=== PATIENT | male | born 1960 | race Hispanic/Latino ===

== ENCOUNTER 2021-02-04 19:27 | Inpatient (IN) | payer BC, OTHER ==
[~2021-02-04 19:27] MED LIST: Iopamidol-370 76% 500 ML 1 ML ONE
[2021-02-04] MEDS ORDERED: Fentanyl 100 MCG/2 ML VIAL ONE (19:37)
[2021-02-04] MEDS ORDERED: Boostrix 0.5 ML (Tdap) VIAL ONE (19:37)
[2021-02-04 19:50] LABS: #Basophils 0.1 thou/uL (0.0-0.2); #Eosinphils 0.1 thou/uL (0.0-0.7); #Lymphocytes 3.1 thou/uL (1.20-3.40); #Monocytes 0.5 thou/uL (0.11-0.59); #Neutrophils 3.2 thou/uL (1.40-6.50); %Basophils 1.1 % (0.0-1.0); %Eosinophils 1.8 % (0.0-10.0); %Monocytes 6.5 % (0.0-10.0); %Neutrophils 45.6 % (42.0-75.0); Hemoglobin 13.1 g/dL (14.0-18.0); Mean Corpuscular HGB CONC 33.8 g/dL (32.0-36.0); Mean Corpuscular Hemoglobin 33.8 pg (27.0-31.0); Platelet Count 120 thou/uL (130-400); RBC Distribution Width 12.1 % (11.5-14.5); Red Blood Cell (RBC) Count 3.87 mill/uL (4.70-6.10); White Blood Cell (WBC) Count 6.9 thou/uL (4.8-10.8)
[2021-02-04 19:56] LABS: INR-International Normal Ratio 1.1; PTT 26.4 sec (22.9-36.1); Prothrombin Time 14.8 sec (12.0-14.7)
[2021-02-04 20:13] LABS: ALT (SGPT) 56 U/L (8-55); AST (SGOT) 75 U/L (5-34); Alkaline Phosphatase 53 U/L (40-110); Anion Gap 17 mmol/L (10-20); BUN (Urea Nitrogen) 28 mg/dL (8.4-25.7); Bilirubin, Total 0.5 mg/dL (0.2-1.2); Calc. Creatinine Clearance 0 mL/min (70-130); Calcium 8.3 mg/dL (7.8-10.44); Carbon Dioxide 18 mmol/L (22-29); Chloride 107 mmol/L (98-107); Globulin 2.5 g/dL (2.4-3.5); Glucose 173 mg/dL (70-105); Lipase 72 U/L (8-78); Potassium 4.4 mmol/L (3.5-5.1); Protein, Total 6.5 g/dL (6.0-8.3); Sodium 138 mmol/L (136-145)
[2021-02-04] MEDS ORDERED: Morphine 4 MG/ML VIAL ONE (20:30)
[2021-02-04] MEDS ORDERED: Lidocaine 1% w/Epinephrine 1:100K 20 ML VIAL ONE (20:58)
[2021-02-04] MEDS ORDERED: Dextrose 50% Abboject 50 ML SYRINGE SLOW IVP PRN (21:09)
[2021-02-04] MEDS ORDERED: Ondansetron PF 4 MG/2 ML Vial IVP PRN (21:09)
[2021-02-04] MEDS ORDERED: Dextrose 5% in Water 1,000 ML IV PRN (21:09)
[2021-02-04] MEDS ORDERED: HumaLOG 300 UNITS/3 ML VIAL SC PRN (21:09)
[2021-02-04] MEDS ORDERED: traMADol HCl 50 MG TAB PO PRN (21:13)
[2021-02-04] MEDS ORDERED: Morphine 2 MG/ML VIAL SLOW IVP PRN (21:19)
[2021-02-04] MEDS ORDERED: Bacitracin 1 PK ONE (21:46)
[2021-02-04 22:35] LABS: #Lymphocytes 0.9 thou/uL (1.20-3.40); #Monocytes 0.6 thou/uL (0.11-0.59); %Basophils 0.4 % (0.0-1.0); %Eosinophils 0.3 % (0.0-10.0); %Lymphocytes 11.9 % (21.0-51.0); %Monocytes 7.7 % (0.0-10.0); %Neutrophils 79.7 % (42.0-75.0); Hemoglobin 10.8 g/dL (14.0-18.0); Mean Corpuscular HGB CONC 32.2 g/dL (32.0-36.0); Mean Corpuscular Hemoglobin 32.5 pg (27.0-31.0); RBC Distribution Width 11.9 % (11.5-14.5); Red Blood Cell (RBC) Count 3.33 mill/uL (4.70-6.10); White Blood Cell (WBC) Count 7.5 thou/uL (4.8-10.8)
[2021-02-04] MEDS ORDERED: Calcium Gluc 4.6 MEQ/10 ML (100 MG/ML) ONE (22:44)
[2021-02-04 22:52] LABS: Mean Platelet Volume 9.8 fL (7.4-10.4); Platelet Count 95 thou/uL (130-400)
[2021-02-04 22:53] LABS: Platelet Morphology Comment Appears Decreased
[2021-02-05] MEDS: Acetaminophen 325 MG TAB PO SCH ×4 (01:50→17:42)
[2021-02-05] MEDS: Lactated Ringer's 1,000 ML IV SCH ×2 (01:51→10:17)
[2021-02-05] MEDS: traMADol HCl 50 MG TAB PO SCH ×2 (01:52→06:35)
[2021-02-05 02:29] VITALS: BMI 36.9
[2021-02-05] MEDS: Ibuprofen 200 MG TAB PO SCH ×2 (03:56→06:36)
[2021-02-05 04:45] LABS: SARS-CoV-2 PCR by NAA Not Detected (NotDetected)
[2021-02-05 05:38] LABS: #Lymphocytes 1.1 thou/uL (1.20-3.40); #Monocytes 0.6 thou/uL (0.11-0.59); #Neutrophils 4.3 thou/uL (1.40-6.50); %Basophils 0.2 % (0.0-1.0); %Eosinophils 0.2 % (0.0-10.0); %Lymphocytes 17.6 % (21.0-51.0); %Monocytes 10.3 % (0.0-10.0); %Neutrophils 71.8 % (42.0-75.0); Mean Corpuscular HGB CONC 33.1 g/dL (32.0-36.0); Mean Corpuscular Hemoglobin 32.8 pg (27.0-31.0); Mean Corpuscular Volume 99.2 fL (78.0-98.0); Mean Platelet Volume 9.8 fL (7.4-10.4); Platelet Count 84 thou/uL (130-400); RBC Distribution Width 12.2 % (11.5-14.5); Red Blood Cell (RBC) Count 3.35 mill/uL (4.70-6.10)
[2021-02-05 05:57] LABS: Anion Gap 14 mmol/L (10-20); BUN (Urea Nitrogen) 22 mg/dL (8.4-25.7); Calc. Creatinine Clearance 224 mL/min (70-130); Calcium 7.7 mg/dL (7.8-10.44); Carbon Dioxide 18 mmol/L (22-29); Chloride 108 mmol/L (98-107); Glucose 161 mg/dL (70-105); Magnesium 1.6 mg/dL (1.6-2.6); Phosphorus 3.4 mg/dL (2.3-4.7); Potassium 3.7 mmol/L (3.5-5.1); Sodium 136 mmol/L (136-145)
[2021-02-05] MEDS ORDERED: Magnesium 2 GM/50 ML 2 GM in Premix Bag 1 BAG IVPB SCH (07:15)
[2021-02-05] MEDS ORDERED: Fentanyl 100 MCG/2 ML VIAL ONE ×3 (08:51→11:30)
[2021-02-05] MEDS ORDERED: Midazolam HCl 2 mg/2 ml Vial ONE (08:51)
[2021-02-05] MEDS ORDERED: Lidocaine 1% w/Epinephrine 1:100K 20 ML VIAL ONE (09:21)
[2021-02-05] MEDS ORDERED: Bupivacaine 0.25% HCL 30 ML VIAL ONE (09:21)
[2021-02-05] MEDS ORDERED: Neomycin-Polymyxin 1 ML AMP ONE (09:21)
[2021-02-05] MEDS ORDERED: Ondansetron HCl/PF 4 MG/2 ML Vial IVP PRN (09:22)
[2021-02-05] MEDS ORDERED: Zolpidem Tartrate 5 MG TAB PO PRN ×3 (09:22→17:15)
[2021-02-05] MEDS ORDERED: Promethazine HCl 25 MG/ML VIAL SLOW IVP PRN (09:22)
[2021-02-05] MEDS ORDERED: Promethazine HCl 25 MG/ML VIAL IM PRN ×4 (09:22→17:15)
[2021-02-05] MEDS ORDERED: Ondansetron PF 4 MG/2 ML Vial IVP PRN ×3 (09:22→17:15)
[2021-02-05] MEDS ORDERED: Ketorolac Tromethamine 30 MG/ML VIAL IVP PRN (09:22)
[2021-02-05] MEDS ORDERED: Fentanyl 100 MCG/2 ML VIAL IV PRN (09:25)
[2021-02-05] MEDS ORDERED: traMADol HCl 50 MG TAB PO PRN ×3 (09:30→17:15)
[2021-02-05] MEDS ORDERED: Ropivacaine 500 MG/250 ML CADD NERVE BLCK SCH (09:30)
[2021-02-05] MEDS ORDERED: Ropivacaine HCl/PF 250 ML in Premix Bag 1 BAG NERVE BLCK SCH ×2 (09:30→17:15)
[2021-02-05] MEDS ORDERED: HYDROcodone/Acetaminophen 10/325 mg Tablet PO PRN ×4 (09:30→17:15)
[2021-02-05] MEDS ORDERED: PROPOFOL 200 MG/20 ML VIAL ONE (09:42)
[2021-02-05] MEDS ORDERED: Lidocaine 1% PF 5 ML VIAL ONE (09:42)
[2021-02-05] MEDS ORDERED: Ketorolac Tromethamine 30 MG/ML VIAL ONE (09:42)
[2021-02-05] MEDS ORDERED: Rocuronium Bromide 10 MG/ML (10ML VIAL) ONE (09:42)
[2021-02-05] MEDS ORDERED: Ondansetron PF 4 MG/2 ML Vial ONE (09:42)
[2021-02-05] MEDS ORDERED: Glycopyrrolate 0.2 MG/ML 5 ML SYRINGE ONE (09:42)
[2021-02-05] MEDS ORDERED: Ropivacaine 0.5% HCl/PF (150 MG/30 ML VIAL) ONE (09:42)
[2021-02-05] MEDS ORDERED: ePHEDrine 50 MG/ML VIAL ONE ×2 (09:42→11:00)
[2021-02-05] MEDS ORDERED: Tranexamic Acid 1,000 MG/10 ML VIAL ONE (10:13)
[2021-02-05] MEDS: Famotidine 20 MG TAB PO SCH ×2 (10:18→21:13)
[2021-02-05] MEDS ORDERED: Phenylephrine 10 MG/ML VIAL ONE (11:33)
[2021-02-05] MEDS ORDERED: HYDROmorphone 0.5 MG/0.5 ML SYRINGE ONE (11:33)
[2021-02-05] MEDS ORDERED: Dexmedetomidine 200 MCG/2 ML VIAL ONE (11:33)
[2021-02-05] MEDS ORDERED: Ketorolac Tromethamine 30 MG/ML VIAL IVP SCH ×2 (12:00→18:00)
[2021-02-05] MEDS: Ketorolac Tromethamine 30 MG/ML VIAL IVP SCH ×2 (12:48→17:42)
[2021-02-05] MEDS ORDERED: Cyclobenzaprine 10 MG TAB PO PRN (13:23)
[2021-02-05] MEDS ORDERED: Fentanyl 100 MCG/2 ML VIAL SLOW IVP PRN (17:07)
[2021-02-05] MEDS: CEFAZOLIN 2 GM in Premix Bag 1 BAG IVPB SCH (17:42)
[2021-02-05] MEDS: traMADol HCl 50 MG TAB PO PRN (17:50)
[2021-02-06] MEDS: Acetaminophen 325 MG TAB PO SCH ×4 (01:51→17:46)
[2021-02-06] MEDS: CEFAZOLIN 2 GM in Premix Bag 1 BAG IVPB SCH (01:53)
[2021-02-06] MEDS: Famotidine 20 MG TAB PO SCH (08:31)
[2021-02-06] MEDS ORDERED: Empagliflozin 10 MG TAB PO SCH (09:00)
[2021-02-06] MEDS ORDERED: Rosuvastatin 10 MG TAB PO SCH (09:00)
[2021-02-06] MEDS: traMADol HCl 50 MG TAB PO PRN ×2 (11:31→17:46)
[2021-02-06] MEDS ORDERED: Ropivacaine 0.2% 550 ML 550 ML NERVE BLCK SCH (12:45)
[2021-02-06 16:07] VITALS: BP 131/89; TEMP 98.9
== END 2021-02-06 18:12 | disposition home or self-care (01) | DRG 494 ==
LOC: ERS 19:27 → SURG A 21:13
PROVIDERS: ADMIT Surgery; ATTEND Surgery
PROC: 30233N1 Transfusion of Nonautologous Red Blood Cells into Peripheral Vein, Percutaneous Approach (ICD-10-PCS; 2021-02-04)
PROC: 0HQMXZZ Repair Right Foot Skin, External Approach (ICD-10-PCS; 2021-02-04)
PROC: 0HQEXZZ Repair Left Lower Arm Skin, External Approach (ICD-10-PCS; 2021-02-04)
PROC: 0PSD04Z Reposition Left Humeral Head with Internal Fixation Device, Open Approach (ICD-10-PCS; principal; 2021-02-05)
DX: S42.212A Unspecified displaced fracture of surgical neck of left humerus, initial encounter for closed fracture (principal); Z20.822 Contact with and (suspected) exposure to COVID-19; Z23 Encounter for immunization; E11.9 Type 2 diabetes mellitus without complications; I10 Essential (primary) hypertension; E78.5 Hyperlipidemia, unspecified; I48.91 Unspecified atrial fibrillation; S42.255A Nondisplaced fracture of greater tuberosity of left humerus, initial encounter for closed fracture; E66.9 Obesity, unspecified; S91.011A Laceration without foreign body, right ankle, initial encounter; S41.112A Laceration without foreign body of left upper arm, initial encounter; S42.112A Displaced fracture of body of scapula, left shoulder, initial encounter for closed fracture; D69.6 Thrombocytopenia, unspecified; S42.022A Displaced fracture of shaft of left clavicle, initial encounter for closed fracture; Z68.37 Body mass index [BMI] 37.0-37.9, adult; Z79.899 Other long term (current) drug therapy; Z79.84 Long term (current) use of oral hypoglycemic drugs; V49.9XXA Car occupant (driver) (passenger) injured in unspecified traffic accident, initial encounter; Y92.410 Unspecified street and highway as the place of occurrence of the external cause
CPT/HCPCS: 12002; 36415; 36416; 36430; 70450; 71045; 71260; 72125; 74177; 76000; 80048; 80053; 83690; 83735; 84100; 84484; 85025; 85610; 85730; 86850; 86900; 86901; 87635; 90471; 90715; 96374; 96375; 99292; A4306; C1713; G0390; J0690; J1170; J1815; J1885; J2001; J2250; J2270; J2370; J2405; J2704; J2795; J3010; J3475; J3490; P9016; Q9967; S0020; U0003; U0005

== ENCOUNTER 2021-02-12 15:57 | Emergency (ER) | payer BC | END 2021-02-12 17:20 | disposition home or self-care (01) | LOC: ERS 15:57 | DX: S70.12XA Contusion of left thigh, initial encounter (principal); I48.91 Unspecified atrial fibrillation; E11.9 Type 2 diabetes mellitus without complications; E78.5 Hyperlipidemia, unspecified; E78.00 Pure hypercholesterolemia, unspecified; I10 Essential (primary) hypertension; Z79.899 Other long term (current) drug therapy; Z79.84 Long term (current) use of oral hypoglycemic drugs; V89.2XXA Person injured in unspecified motor-vehicle accident, traffic, initial encounter ==

== ENCOUNTER 2021-03-05 20:28 | Emergency (ER) | payer OTHER, BC | END 2021-03-05 23:10 | disposition home or self-care (01) | LOC: ERS 20:28 | DX: S80.12XA Contusion of left lower leg, initial encounter (principal); S90.31XA Contusion of right foot, initial encounter; R60.0 Localized edema; I48.91 Unspecified atrial fibrillation; E11.9 Type 2 diabetes mellitus without complications; E78.5 Hyperlipidemia, unspecified; E78.00 Pure hypercholesterolemia, unspecified; I10 Essential (primary) hypertension; Z79.899 Other long term (current) drug therapy; Z79.82 Long term (current) use of aspirin; V89.2XXA Person injured in unspecified motor-vehicle accident, traffic, initial encounter ==

== ENCOUNTER 2024-05-04 07:58 | Outpatient (CLI) | payer BC | END 2024-05-04 07:59 | disposition home or self-care (01) | LOC: BICRAD 07:58 | PROVIDERS: ATTEND Family Medicine | DX: J18.9 Pneumonia, unspecified organism (principal) | CPT/HCPCS: 71046 ==